=== PATIENT | male | born 1970 | race African-American/Black ===

== ENCOUNTER → 2016-09-05 12:30 | Emergency (ER) | payer OTHER ==
[~2016-09-05 12:30] MED LIST: AMITRIPTYLINE H50 MG PO; ASPIR-TRIN325 MG PO; ASPIRIN81 M2 PO; BACTRIM DS TABL1 TA1; BACTRIM DS TABL1 TA1 PO; COREG12.5 M1 PO; COREG3.125 MG PO; FUROSEMIDE40 MG PO; HUMULIN 70/30 V10 ML; HUMULIN 70/30 V10 ML SQ; HUMULIN 70100 UNIT/1 SQ; HUMULIN 70100 UNITS/ INJ; HYDROCODON-ACE1 EAC7 PO; INVOKANA300 MG PO; KEFLEX500 MG PO; LANTUS100 U/ML SUBQ; LIPITOR PO; LIPITOR40 MG PO; LISINOPRIL10 MG PO; LISINOPRIL20 MG PO; LOPRESSOR PO; NEURONTIN600 MG PO; NITROSTAT0.4 MG SL; NORVASC10 MG PO; NOVOLIN 70/30 V10 M1; NOVOLIN 70/30 V10 ML INJ; OMEPRAZOLE40 M1 PO; ORUDIS75 M1 DOB; PRAVACHOL PO; PRAVASTATIN SOD40 MG PO; TRAZODONE HCL100 MG PO; TYLENOL325 M1 PO; TYLOX 5-500 CA1 EACH PO; VICODIN 5/500 T1 TAB PO; VITAMIN D50000 UNIT PO; ZANTAC150 MG PO; ZESTRIL10 MG PO; ZOFRAN PO
== END | disposition left against medical advice (07) ==
LOC: CED 12:30
DX: Z53.21 Procedure and treatment not carried out due to patient leaving prior to being seen by health care provider (principal)